=== PATIENT | female | born 1960 | race Caucasian/White ===

== ENCOUNTER 2019-11-15 06:36 | Day surgery (SDC) | payer OTHER, SELFPAY ==
[2019-11-14 14:52] VITALS: BMI 20.5
[2019-11-15] VITALS (7 sets, daily range): BP systolic 93–110; BP diastolic 51–76; PULSE 64–90; RESP 17–20; TEMP 36.1–36.4; O2SAT 99–100
[2019-11-15] MEDS: sodium chloride 0.9% 1,000 ML 30 ML IV (07:08)
--- NOTE | 2019-11-15 07:09 | ANES.PREANE2 ---
Pre-Anesthetic Assessment Pre-Anesthetic Assessment: Height/Weight: Height 1.63 m Weight 54.431 kg Temp Pulse Resp BP Pulse Ox 97.0 F L 67 18 110/76 99 11/15/19 07:07 11/15/19 07:07 11/15/19 07:07 11/15/19 07:07 11/15/19 07:07 Preop Diagnosis: hemorrhoid Proposed Procedure: Operation Date: 11/15/19 08:00 Proposed Procedures p Exam Under Anesthesia(Not Applicable) - Otto Henao MD s Hemorroidectomy(Not Applicable) - Otto Henao MD Familial anesthetic complications: None trouble with anesthesia Was Beta Evelyn taken within 24 hours: N/A Last intake: Intake Last Liquid Date 11/14/19 Last Liquid Time 22:00 Last Solid Date 11/14/19 Last Solid Time 18:00 Social: Social History: No alcohol and No tobacco Exam: Pre-Anes Outpt Exam: alert, oriented x 3, clear to auscultation bilaterally and regular rate & rhythm Airway: Cervical ROM: WNL MP: 1 Dentition: Full Pulmonary: Pulmonary: None reported CV/HEM: CV/HEM: None reported : : None reported Hepatic: Hepatic: None reported GI: GI: None reported Metabolic: Metabolic: None reported Musc/skel: Musc/skel: None reported Neuropsych: Neuropsych: None reported Anesthetic Plan: ASA status: 1 Anesthesia: General Risk of > 500 ml blood loss (7ml/kg in children): No Meds/Allergies Current Medications: Current Medications Generic Name Dose Route Start Last Admin Trade Name Freq PRN Reason Stop Dose Admin Sodium Chloride 1,000 mls @ 30 ml s/hr 11/15/19 06:45 11/15/19 07:08 Sodium Chloride 0.9% IV 11/16/19 06:44 30 mls/hr .Q24H SOUMYA Administration PFSH Anesthesia PFSH: Family History (Updated 10/15/19 @ 12:28 by Daniel Gaona MD) Mother Thyroid condition Hypertension Daughter Thyroid condition Unknown No problems noted. Social History Smoking and tobacco status: former smoker Alcohol intake: never Data Anesthesia Cardiac Studies: No Data to Display
--- NOTE | 2019-11-15 07:53 | W.PM.OPSUD ---
Surgery/Procedure H&P Update DATE OF PROCEDURE: November 15, 2019 DATE H&P PERFORMED: 11/06/19 H&P UPDATE INFORMATION: I have reviewed H&P completed within last 30 days and No changes to prior documentation PREOP DIAGNOSIS: hemorrhoid PLANNED PROCEDURE: Operation Date: 11/15/19 08:00 Proposed Procedures p Exam Under Anesthesia(Not Applicable) - Otto Henao MD s Hemorroidectomy(Not Applicable) - Otto Henao MD
[2019-11-15] MEDS: metroNIDAZOLE IV 500 MG/100 ML PREMIX 100 MG IV (08:15)
--- NOTE | 2019-11-15 08:18 | PM.OP ---
Operative Report Date of procedure: November 15, 2019 Pre-op Diagnosis: Hematochezia with history of hemorrhoids. Post-op diagnosis: same (Excoriated hemorrhoidal complex anteriorly.) Procedure Done: Examination under anesthesia with hemorrhoidectomy. Specimens removed/disposition: Hemorrhoidal complex. Surgeon: Otto Henao Anesthesia: General Estimated blood loss (mL): 1 Complications: None. Condition: stable Disposition: PACU Procedure: The patient was brought to the operating room and was placed in a supine position on the operating room table. General anesthesia was induced by means of a laryngeal mask airway. The patient was then moved to a left lateral decubitus position on the table. The perianal region was prepped and draped in a sterile fashion. An exam under anesthesia was then carried out using a Glasgow rectal retractor. The patient had a somewhat excoriated area of tissue/hemorrhoid anteriorly. She had some small external hemorrhoidal tags but no other significant hemorrhoidal complexes. The anterior complex was grasped with an Allis clamp and was removed using the Voyant energy device. The anal sphincters were then gently dilated to approximately 2-1/2 finger breaths. Some 0.5% bupivacaine with 1-200,000 parts epinephrine was instilled for postoperative anesthesia. A Vaseline coated piece of gauze and some fluff dressings were used as anal packing and then a superficial fluff dressing was placed. The patient was taken to the recovery room in stable condition postoperatively.
--- NOTE | 2019-11-15 08:34 | SUR.PHASEI ---
0823 PATIENT TO PACU AT THIS. RR EVEN AND UNLABORED. PATIENT DENIES PAIN. RESPONDS TO VERBAL STIMULI.
--- NOTE | 2019-11-15 08:53 | SUR.PHASEI ---
0849 PATIENT TO OPS AT THIS TIME. DENIES PAIN. NO DISTRESS. TOLERATING ICE CHIPS.
== END 2019-11-15 09:40 | disposition home or self-care (01) ==
PROVIDERS: Family Provider Family Medicine; PCP Family Medicine; Visit Provider Surgery
PROC: (CPT 46999; principal; 2019-11-15 08:00)
PROC: (CPT 46999; 2019-11-15 08:00)
DX: K92.1 Melena (principal); K64.4 Residual hemorrhoidal skin tags; Z87.891 Personal history of nicotine dependence
CPT/HCPCS: 46999; 12345; 88304; J0690; J1100; J1885; J2001; J2250; J2405; J2704; J3010; J3490; J7030; S0030

== ENCOUNTER → 2020-05-06 14:14 | Outpatient (BNVA) | payer OTHER, SELFPAY | PROVIDERS: Family Provider Family Medicine; PCP Family Medicine; Referring Provider Dermatology; Visit Provider Dermatology | DX: Z12.83 Encounter for screening for malignant neoplasm of skin (principal); L57.0 Actinic keratosis; L82.1 Other seborrheic keratosis; D18.01 Hemangioma of skin and subcutaneous tissue; L40.9 Psoriasis, unspecified | CPT/HCPCS: 17000; 99203 ==

== ENCOUNTER 2021-02-05 08:41 | Outpatient (CLI) | payer OTHER, SELFPAY ==
--- NOTE | 2021-02-05 09:00 | MM_ITS ---
WS: [id number] SCREENING DIGITAL MAMMOGRAM WITH CAD HISTORY: Z12.39 - Encounter for other screening for malignant neoplasm of breast COMPARISON: 09/15/2018 and 09/17/2016 Bilateral CC and MLO views submitted. Computer aided detection analyzed. Breast composition: The breasts are heterogeneously dense, which may obscure small masses. No suspici ous masses, microcalcifications or architectural distortion. MM/[place] [id number] IMPRESSION: BI-RADS: 1-Negative FOLLOW UP: 1 Year Follow-up
== END 2021-02-05 08:42 | disposition home or self-care (01) ==
PROVIDERS: Visit Provider Obstetrics & Gynecology
DX: Z12.31 Encounter for screening mammogram for malignant neoplasm of breast (principal)
CPT/HCPCS: 77067

== ENCOUNTER 2022-02-08 09:07 | Outpatient (CLI) | payer OTHER, SELFPAY ==
--- NOTE | 2022-02-08 09:15 | MM_ITS ---
WS: [id number] SCREENING DIGITAL BREAST TOMOSYNTHESIS MAMMOGRAM WITH CAD HISTORY: SCREENING COMPARISON: 02/05/2021, 09/15/2018 Bilateral CC and MLO with tomosynthesis views submitted. Synthetic mammography reviewed. Computer aid ed detection analyzed. Breast composition: The breasts are heterogeneously dense, which may obscure small masses. No suspici ous masses, microcalcifications or architectural distortion. MM/[place] [id number] IMPRESSION: BI-RADS: 1-Negative FOLLOW UP: 1 Year Follow-up
== END 2022-02-08 09:08 | disposition home or self-care (01) ==
LOC: RAD 09:09
PROVIDERS: PCP Family Medicine; Visit Provider Nurse Practitioner Women's Health
DX: Z12.31 Encounter for screening mammogram for malignant neoplasm of breast (principal)
CPT/HCPCS: 77063; 77067

== ENCOUNTER 2022-11-11 12:06 | Outpatient (CLI) | payer OTHER, SELFPAY ==
--- NOTE | 2022-11-11 13:00 | XR_ITS ---
WS: [id number] DEXA (DUAL ENERGY X-RAY ABSORPTIOMETRY) Bone mineral density was performed using a [employer] machine. HISTORY: Z78.0 - Asymptomatic menopausal state COMPARISON: None available. Lumbar spine BMD (L1-L4): 1.320 g/cm2 T score: 1.2 Z score: 2.9 Total hip BMD: Left: 0.955 g/cm2. T score: -0.4 Z score: 0.9 Right: 0.976 g/cm2. T score: -0.3 Z score: 1.1 10 year probability of a major osteoporotic fracture is 13.9%. XR/XR DEXA axial skeleton* [id number] IMPRESSION: NORMAL BONE MINERAL DENSITY based upon the WHO classification for females.
== END 2022-11-11 12:07 | disposition home or self-care (01) ==
LOC: RAD 12:09
PROVIDERS: PCP Family Medicine; Visit Provider Nurse Practitioner Women's Health
DX: Z13.820 Encounter for screening for osteoporosis (principal); Z78.0 Asymptomatic menopausal state
CPT/HCPCS: 77080

== ENCOUNTER 2023-02-24 10:38 | Outpatient (CLI) | payer OTHER, SELFPAY ==
--- NOTE | 2023-02-24 11:00 | MM_ITS ---
WS: [id number] BILATERAL SCREENING DIGITAL TOMOSYNTHESIS MAMMOGRAM WITH CAD HISTORY: Z12.39 - Encounter for other screening for malignant neoplasm... COMPARISON: 02/08/2022, 02/05/2021 Bilateral CC and MLO views with tomosynthesis and synthetic mammography submitted. Computer aided det ection analyzed. Breast composition: The breasts are heterogeneously dense, which may obscure small masses. No suspici ous masses, microcalcifications or architectural distortion. MM/[place] [id number] IMPRESSION: BI-RADS: 1-Negative FOLLOW UP: 1 Year Follow-up
== END 2023-02-24 10:39 | disposition home or self-care (01) ==
PROVIDERS: PCP Family Medicine; Visit Provider Nurse Practitioner Women's Health
DX: Z12.31 Encounter for screening mammogram for malignant neoplasm of breast (principal)
CPT/HCPCS: 77063; 77067

== ENCOUNTER 2024-08-08 08:56 | Outpatient (CLI) | payer SELFPAY ==
--- NOTE | 2024-08-08 09:00 | MM_ITS ---
WS: [id number] BILATERAL SCREENING DIGITAL TOMOSYNTHESIS MAMMOGRAM WITH CAD HISTORY: Z12.31 - Encounter for screening mammogram for malignant ... COMPARISON: 02/24/2023, 02/08/2022, 02/05/2021 Bilateral CC and MLO views with tomosynthesis and synthetic mammography submitted. Computer aided det ection analyzed. Breast composition: The breasts are extremely dense, which lowers the sensitivity of mammography. No suspicious masses, microcalcifications or architectural distortion. Asymmetries in the RIGHT breast a re slowly involuting over time as expected. There is no distortion or calcification. MM/MM scr tomosynthesis [id number] IMPRESSION: BI-RADS: 2 - Benign FOLLOW UP: 1 Year Follow-up
== END 2024-08-08 08:57 | disposition home or self-care (01) ==
LOC: RAD 08:56
PROVIDERS: PCP Family Medicine; Visit Provider Nurse Practitioner Women's Health
DX: Z12.31 Encounter for screening mammogram for malignant neoplasm of breast (principal); R92.333 Mammographic heterogeneous density, bilateral breasts; N64.89 Other specified disorders of breast
CPT/HCPCS: 77063; 77067

== ENCOUNTER → 2025-02-11 15:26 | Outpatient (BNVA) | payer MEDICARE, SELFPAY | PROVIDERS: PCP Family Medicine; Visit Provider Nurse Practitioner Family | DX: L40.0 Psoriasis vulgaris (principal); D18.01 Hemangioma of skin and subcutaneous tissue; L81.4 Other melanin hyperpigmentation; L57.8 Other skin changes due to chronic exposure to nonionizing radiation | CPT/HCPCS: 99214 ==

== ENCOUNTER → 2025-02-14 11:22 | Outpatient (BNVA) | payer MEDICARE, SELFPAY | PROVIDERS: PCP Family Medicine; Visit Provider Nurse Practitioner Women's Health | DX: E55.9 Vitamin D deficiency, unspecified (principal); R53.83 Other fatigue | CPT/HCPCS: 82306; 84439; 84443 ==